=== PATIENT | female | born 1960 | race Asian ===

== ENCOUNTER 2022-08-29 10:39 | Emergency (ER) | payer MEDICAID ==
[~2022-08-29] VITALS: Ht 160 cm; Wt 68.0 kg
[2022-08-29 10:44] VITALS: BP 146/79
[2022-08-29] MEDS ORDERED: METH4TAB81 PO (12:06)
[2022-08-29] MEDS ORDERED: DEXA5DRO4 LEFTEYE (12:06)
[2022-08-29] MEDS ORDERED: ERYT1OIN6 LEFTEYE (12:06)
== END 2022-08-29 12:29 | disposition home or self-care (01) ==
LOC: ER 10:40
DX: H15.002 Unspecified scleritis, left eye (principal); Z79.899 Other long term (current) drug therapy
CPT/HCPCS: 99283